=== PATIENT | female | born 1975 | race Caucasian/White ===

== ENCOUNTER 2019-08-17 12:46 | Emergency (ER) | payer OTHER ==
[~2019-08-17] VITALS: Ht 160 cm; Wt 76.8 kg
[2019-08-17 13:49] LABS: BACTERIA,URINE MANY /HPF (0-FEW); BILIRUBIN,URINE NEG (NEG); CLARITY,URINE TURBID; COLOR,URINE AMBER; GLUCOSE,URINE NEG (NEG); NITRITE,URINE NEG (NEG); UROBILINOGEN,URINE 0.2 mg/dL (0.2 mg/dL); WBC,URINE >40 /HPF (0-4)
[2019-08-17 13:51] LABS: SQUAMOUS EPITHELIAL CELL,UR MOD /LPF
--- NOTE | 2019-08-17 13:58 | PHYS DOC ---
Past History Additional Past Medical Histor: Colitis Past Surgical History: No Surgical History Smoking: Non-smoker Alcohol Use: Rarely Drug Use: None Adult General Chief Complaint Chief Complaint: ABDOMINAL PAIN HPI HPI Patient is a 44-year-old female who presents to the ED with abdominal pain. She states that the pain is generalized worse in the lower abdomen and also bilateral flank pain L>R. she stated that she is dealing with bouts of colitis since her child was born approximately 2 years prior. This most recent episode has been going on for approximately 4 weeks but the pain has become more constant over the past 3 days. She was seen at [facility] on 08/05/2019 for similar symptoms. She was given a course of ciprofloxacin for possible cystitis as well as colitis. Her symptoms continue to worsen in her abdominal pain became more constant and less responsive to tramadol. She describes the pain as a crampy pain that is similar to menstrual cramps. She feels it more in her lower abdomen. It wax and wanes but has become more constant. She denies fevers and chills for the past week but states that she does have a change in bowel movements going from a more formed stool to liquid as well as nausea. She states that she does have occasional blood in her stools but that seems to come and go. She states that having a bowel movement does relieve the pain for a short period. She has been unable to eat normally for approximately 4 weeks due to her symptoms. Denies travel outside the [place]. Denies known sick contacts. Review of Systems Review of Systems Constitutional: Denies fever or chills Respiratory: Denies cough, reports shortness of breath secondary to pain Cardiovascular: Denies chest pain or palpitations GI: Reports abdominal pain and nausea, denies vomiting : Denies dysuria or hematuria Musculoskeletal: Reports bilateral flank pain L>R, denies joint pain Complete systems were reviewed and found to be within normal limits, except as documented in this note. Current Medications Current Medications Current Medications Medications (Trade) Dose Ordered Sig/Kalpana Start Time Stop Time Status Last Admin Dose Admin Famotidine (Pepcid Vial) 20 mg 1X ONCE 08/17/19 13:30 08/17/19 13:31 Fentanyl Citrate (Fentanyl 2ml Vial) 50 mcg 1X ONCE 08/17/19 13:15 08/17/19 13:22 DC Ondansetron HCl (Zofran) 4 mg 1X ONCE 08/17/19 13:30 08/17/19 13:31 Sodium Chloride 1,000 ml @ 1,000 mls/hr 1X ONCE 08/17/19 13:15 08/17/19 14:14 Allergies Allergies Allergies Coded Allergies Type Severity Reaction Last Updated Verified Sulfa (Sulfonamide Antibiotics) Allergy Unknown 08/17/19 Yes Physical Exam Physical Exam Constitutional: Well developed, well nourished, mild distress, uncomfortable appearance HENT: Normocephalic, atraumatic, oropharynx moist Eyes: PERRL, EOMI, conjunctiva normal, no discharge Neck: Normal range of motion, no tenderness, supple Cardiovascular: Heart rate rapid, regular rhythm Lungs & Thorax: Bilateral breath sounds clear to auscultation, no wheezing Abdomen: Soft, tenderness to palpation in lower abdomen generalized, reports guarding Skin: Warm, dry, no erythema, no rash Back: No tenderness, bilateral CVA tenderness L>R Extremities: No tenderness, ROM intact, no edema Neurologic: Alert and oriented X 3, normal motor function, normal sensory function, no focal deficits noted Psychologic: Affect normal, judgment normal Current Patient Data Lab Results Laboratory Tests Test 08/17/19 13:27 POC Urine HCG, Qualitative hcg negative (Negative) EKG EKG [] Radiology/Procedures Radiology/Procedures PROCEDURE: CT ABD PELV W/ORAL&IV CONTRAST CT abdomen and pelvis with contrast 08/17/2019. Reason for exam: Nausea and vomiting with pain. CT images were performed through the abdomen and pelvis following oral contrast ingestion and using an infusion of 75 mL Omnipaque 300. Exposure: One or more of the following individualized dose reduction techniques were utilized for this examination: 1. Automated exposure control 2. Adjustment of the mA and/or kV according to patient size 3. Use of iterative reconstruction technique. FINDINGS: The lung bases are clear. The liver contains some tiny low-attenuation structures probably indicating cysts. No other liver parenchymal abnormality is seen. There is probably a small stone in the gallbladder. Gallbladder otherwise appears normal. The spleen appears normal. Both kidneys enhance with contrast. No mass or obstruction is seen. There are tiny calculi. The adrenal glands are not enlarged. The pancreas appears normal. No retroperitoneal adenopathy is seen. There are a few small lymph nodes scattered in the small bowel mesentery, although these are less than 1 cm. No abdominal soft tissue mass is seen. There is diffuse colon wall thickening beginning in the proximal transverse colon and extending through the descending colon and sigmoid colon. This consistent with diffuse colitis. There is some edema in the adjacent mesenteric fat. No localized fluid collection such as an abscess is seen. Images through the pelvis show no abnormality of the distal ureters or bladder. No inguinal adenopathy is seen. There is a mildly prominent lymph node along the left pelvic sidewall. The uterus and adnexal structures appear normal for age. There is no separate pelvic mass or additional inflammatory process. IMPRESSION: Findings suggest diffuse colitis Electronically signed by: Zachariah Gallego Jr., MD (08/17/2019 4:44 PM) [facility] [place] Course & Med Decision Making Course & Med Decision Making Pertinent Labs and Imaging studies reviewed. (See chart for details) Patient is a 42-year-old female who presents to the ED with abdominal pain worsening over the past 3 days. She has history of episodes of colitis since her child was born approximately 2 years prior. This recent episode has been ongoing for 4 weeks but the pain has become more constant over the last 3 days. She was recently seen at [facility] on 08/05/2019 for similar symptoms and given Cipro for possible cystitis and colitis. Her pain has continued and has become more constant and less responsive to tramadol. She describes the pain as a crampy lower abdominal pain. She's also reports bilateral flank pain L>R. patient reports nausea, and change in bowel movement with this recent episode. She denies vomiting,recent fevers, or chills. Her last subjective fever was approximately 1 week prior. She has had a very limited appetite secondary to symptoms for the past 4 weeks. Patient was examined in the ED, she received IV fluids, Zofran for her nausea, Pepcid, fentanyl for pain, and a dose of Bentyl. UA showed signs concerning for acute UTI. Her CBC showed leukocytosis and neutrophilia. She had a lactic acid 3.3 which improved after receiving IV fluids. She was hypokalemic and hypomagnesemia on her CMP. A CT of her abdomen was ordered and showed diffuse colitis. Patient meeting SIRS criteria with source of infection and elevated lactic acid= Severe Sepsis. IV antibiotics were given which included Zosyn, vancomycin, and Levaquin. Her magnesium was replaced. She was given morphine for continued pain. Patient requiring admission for further evaluation and treatment. Given chronic colitis will likely need GI consultation. Patient was to follow with - (GI) but has yet to see this physician. Due to patient requiring transfer to facility with GI coverage, patient and family requesting transfer to . Utilized transfer line. Dr. Belkis Khoury accepting of transfer. Discussed findings and plan with patient and family, who acknowledge unde rstanding and agreement. Dragon Disclaimer Dragon Disclaimer This electronic medical record was generated, in whole or in part, using a voice recognition dictation system. Departure Departure: Impression: Primary Impression: Severe sepsis Additional Impressions: Colitis Acute UTI Hypokalemia Hypomagnesemia Disposition: 05 TRANSFER OTHER () Condition: GUARDED Referrals: KELLI DOE (PCP) Sepsis Assessment Date and Time of Assessment Date: Aug 17, 2019 Time: 16:10 Fluid Challenge: Is the fluid challenge complet: Yes IBW Target Volume Used: Yes BMI > 30: Yes Vital Signs Vital Signs Vital Signs Date Time Temp Pulse Resp B/P (MAP) Pulse Ox O2 Delivery O2 Flow Rate FiO2 08/17/19 19:25 144 20 102/65 (77) 97 Room Air 08/17/19 12:55 97.8 Temperature Source: Oral Respirations Respiratory Effort: Normal, Non-Labored Respiratory Pattern: Normal Cardiovascular Pulse Rhythm: Irregular (Tachycardia) Heart: No rubs, clicks or gallop Lung Sounds Breath Sounds: Clear Capillary Refill Capillary Refill: Rt Hand < 3 seconds Peripheral Pulse Pulse Location: Radial Pulse Strength: Normal (2+) Pulse Assessment Method: Palpation Integumentary Skin: Warm, Dry, No Rashes Skin Moisture: Dry Skin Turgor: Normal Skin Color: warm, dry Fingernail Color: WNL Critical Care Time Critical care time was 30 minutes which includes time at bedside, spent in discussion of patient's care with specialists and/or family members, with interpretation of laboratory and/or radiological studies and is exclusive of procedures. Problem Qualifiers TOMER ROWLEY DO Aug 17, 2019 13:58
[2019-08-17] MEDS ORDERED: CONTRAST GIVEN MC PRN (14:00)
[2019-08-17 14:18] LABS: CALCIUM 9.6 mg/dL (8.5-10.1); GFR 60.8; POTASSIUM 3.2 mmol/L (3.5-5.1)
[2019-08-17 14:23] LABS: ALBUMIN 2.6 g/dL (3.4-5.0); ALBUMIN/GLOBULIN RATIO 0.5 (1.0-1.7); MAGNESIUM 1.7 mg/dL (1.8-2.4); TOTAL BILIRUBIN 0.4 mg/dL (0.2-1.0); TOTAL PROTEIN 7.5 g/dL (6.4-8.2)
[2019-08-17 14:24] LABS: BASO % 0 % (0-3); EOS % 0 % (0-3); HEMATOCRIT 39.5 % (36.0-47.0); HEMOGLOBIN 12.3 g/dL (12.0-15.5); LYMPH # 3.5 x10^3/uL (1.0-4.8); LYMPH % 22 % (24-48); MEAN CORPUSCULAR HEMOGLOBIN 26 pg (25-35); MEAN CORPUSCULAR HGB CONC 31 g/dL (31-37); MEAN CORPUSCULAR VOLUME 85 fL (79-100); MONO # 1.6 x10^3/uL (0.0-1.1); MONO % 10 % (0-9); NEUT # 10.8 x10^3uL (1.8-7.7); NEUT % 68 % (31-73); PLATELET COUNT 619 x10^3/uL (140-400); RED BLOOD COUNT 4.67 x10^6/uL (3.50-5.40); RED CELL DISTRIBUTION WIDTH 18.1 % (11.5-14.5); WHITE BLOOD COUNT 15.9 x10^3/uL (4.0-11.0)
[2019-08-17] MEDS: IV NORMAL SALINE 1,000ML 1,000 ML IV ONE ×3 (14:36→19:45)
[2019-08-17] MEDS: ONDANSETRON PF 4 MG/2 ML VIAL. IVP ONE ×2 (14:39→18:16)
[2019-08-17] MEDS: FAMOTIDINE 20 MG/2 ML VIAL IVP ONE (14:40)
[2019-08-17] MEDS: DICYCLOMINE 20 MG/2 ML AMPUL. IM ONE (14:44)
[2019-08-17] MEDS ORDERED: PIPERACILLIN/TAZOBACTAM 4.5 GM VIAL IV ONE (15:06)
[2019-08-17] MEDS ORDERED: IV NORMAL SALINE 100ML 100 ML ONE (15:06)
[2019-08-17 15:13] LABS: % BANDS 1 % (0-9); % EOS 1 % (0-5); % MONOS 9 % (0-10)
[2019-08-17 15:14] LABS: % LYMPHS 18 % (24-48); % SEGS 71 % (35-66)
[2019-08-17] MEDS: PIPERACILLIN/TAZOBACTAM 4.5 GM in IV NORMAL SALINE 100ML 100 ML IV ONE (15:14)
[2019-08-17 15:16] LABS: PLT ESTIMATE INCREASED (ADEQUATE)
[2019-08-17 15:17] LABS: ANISOCYTOSIS SLIGHT; OVALOCYTES OCC
[2019-08-17] MEDS: MAGNESIUM SULFATE 2GM 50 ML IV ONE (15:24)
[2019-08-17] MEDS: MORPHINE SULFATE 4 MG/ML DISP.SYRIN. IV ONE (15:49)
[2019-08-17] MEDS: IOHEXOL 300 MG/ML 75 ML VIAL. IV ONE (16:20)
[2019-08-17] MEDS: IOHEXOL 240 MG/ML 50ML VIAL. PO ONE (16:21)
--- NOTE | 2019-08-17 16:47 | RAD ---
CT abdomen and pelvis with contrast 08/17/2019. Reason for exam: Nausea and vomiting with pain. CT images were performed through the abdomen and pelvis following oral contrast ingestion and using an infusion of 75 mL Omnipaque 300. Exposure: One or more of the following individualized dose reduction techniques were utilized for this examination: 1. Automated exposure control 2. Adjustment of the mA and/or kV according to patient size 3. Use of iterative reconstruction technique. FINDINGS: The lung bases are clear. The liver contains some tiny low-attenuation structures probably indicating cysts. No other liver parenchymal abnormality is seen. There is probably a small stone in the gallbladder. Gallbladder otherwise appears normal. The spleen appears normal. Both kidneys enhance with contrast. No mass or obstruction is seen. There are tiny calculi. The adrenal glands are not enlarged. The pancreas appears normal. No retroperitoneal adenopathy is seen. There are a few small lymph nodes scattered in the small bowel mesentery, although these are less than 1 cm. No abdominal soft tissue mass is seen. There is diffuse colon wall thickening beginning in the proximal transverse colon and extending through the descending colon and sigmoid colon. This consistent with diffuse colitis. There is some edema in the adjacent mesenteric fat. No localized fluid collection such as an abscess is seen. Images through the pelvis show no abnormality of the distal ureters or bladder. No inguinal adenopathy is seen. There is a mildly prominent lymph node along the left pelvic sidewall. The uterus and adnexal structures appear normal for age. There is no separate pelvic mass or additional inflammatory process. IMPRESSION: Findings suggest diffuse colitis Electronically signed by: Zachariah Gallego Jr., MD (08/17/2019 4:44 PM) [facility] [place] [facility] [place]
[2019-08-17] MEDS: VANCOMYCIN 2 GM in IV NORMAL SALINE 500ML 500 ML IV ONE (18:05)
[2019-08-17 19:25] VITALS: BP 102/65
== END 2019-08-17 20:18 | disposition short-term general hospital (02) ==
LOC: ER 12:46
DX: A41.9 Sepsis, unspecified organism (principal); K52.9 Noninfective gastroenteritis and colitis, unspecified; N39.0 Urinary tract infection, site not specified; E87.6 Hypokalemia; E83.42 Hypomagnesemia; Z88.2 Allergy status to sulfonamides
CPT/HCPCS: 36415; 74177; 80053; 81001; 81025; 83605; 83690; 83735; 85007; 85025; 85610; 85730; 87045; 87086; 87177; 87493; 96361; 96365; 96366; 96367; 96372; 96375; 96376; 99291; J0500; J1956; J2270; J2405; J2543; J3010; J3370; J3475; J3490; J7040; Q9966; Q9967; J7030

== ENCOUNTER 2021-08-09 17:43 | Emergency (ER) | payer OTHER ==
[~2021-08-09] VITALS: Ht 160 cm; Wt 76.8 kg
--- NOTE | 2021-08-09 17:58 | PHYS DOC ---
Past History Past Medical History: Hypertension, Other Additional Past Medical Histor: Colitis Past Surgical History: No Surgical History Smoking: Non-smoker Alcohol Use: Rarely Drug Use: None General Adult HPI: HPI: ".. 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 I think .. I got myself too dry... got a touch flu or something.. I already had COVID in June... " Patient is a 45 year old female who presents with above hx and complaints nausea, vomiting , abdomen pain. Patient did not get COVID vaccination or flu vaccination. Had COVID illness in June of this year. Hx. prior medical issues sepsis.Pt. follows with [facility] for care. Patient has noted she has had very little urine output today. With activity she is very dizzy and weak. No history of recent travel. No history of contacts. No history of bad food. No history of immunosuppression. Pt. follows with [facility] for care. Review of Systems: Review of Systems: Constitutional: Denies fever or chills Eyes: Denies change in visual acuity HENT: Denies nasal congestion or sore throat Respiratory: Denies cough or shortness of breath Cardiovascular: Denies chest pain or edema GI: Complains of abdominal pain, nausea, vomiting,. Denies bloody stools or diarrhea : Denies dysuria Musculoskeletal: Complains of myalgias, arthralgia and malaise Integument: Denies rash Neurologic: Complains of dizziness when she stands up or becomes active Endocrine: Denies polyuria or polydipsia Lymphatic: Denies swollen glands Psychiatric: Denies depression or anxiety Family History: Family History: Noncontributory to presentation Current Medications: Current Meds: See nursing for home meds Allergies: Allergies: Allergies Coded Allergies Type Severity Reaction Last Updated Verified Sulfa (Sulfonamide Antibiotics) Allergy Unknown 08/17/19 Yes Physical Exam: PE: Constitutional: Moderate acute distress, non-toxic appearance. [] HENT: Normocephalic, atraumatic, bilateral external ears normal, oropharynx dry, no oral exudates, nose normal. [] Eyes: PERRLA, EOMI, conjunctiva normal, no discharge. [] Neck: Normal range of motion, no tenderness, supple, no stridor. [] Cardiovascular: Tachycardia heart rate regular rhythm, no murmur [] Lungs & Thorax: Bilateral breath sounds equal at apex auscultation [] Abdomen: Bowel sounds hyperactive ,soft, generalized tenderness, no masses, no pulsatile masses. [] Skin: Warm, dry, no erythema, no rash. [] Back: No tenderness, no CVA tenderness. [] Extremities: No tenderness, no cyanosis, no clubbing, ROM intact, no edema. [] Neurologic: Alert and oriented X 3, normal motor function, normal sensory function, no focal deficits noted. [] Psychologic: Affect anxious judgement normal, mood normal. [] EKG: EKG: My interpretation EKG shows a sinus tachycardia at 170s per minute. No acute morphology. Time EKG is 1901 hrs. [] Radiology/Procedures: Radiology/Procedures: [][place] [address] IMAGING REPORT Signed PATIENT: JOCELYN MCCLENDON YACCOUNT: [id number] : 1975 LOCATION: ER AGE: 45 SEX: F EXAM STATUS: REG ER ORD. PHYSICIAN: KINGA NAVARRETE MD REASON: Nausea, vomiting PROCEDURE: ACUTE ABDOMEN SERIES Exam: Acute abdominal series INDICATION: Nausea vomiting TECHNIQUE: Frontal view of the chest with upright and supine views of the abdomen Comparisons: CT 08/17/2019 FINDINGS: The cardiomediastinal silhouette and pulmonary vessels are within normal limits. The lung and pleural spaces are clear. Air and stool are noted throughout the colon in a nonobstructive bowel gas pattern. No suspicious masses or calcifications. Suture material noted at the pelvis. Visualized osseous structures are unremarkable. IMPRESSION: 1. Nonobstructive bowel gas pattern. 2. No acute cardiopulmonary process. Electronically signed by: Adelfo Casas MD (08/09/2021 11:06 PM) [facility] DICTATED AND SIGNED BY: ADELFO CASAS MD DATE: 08/09/21 1983 CC: KINGA NAVARRETE MD; [facility] DOE ~MTH0 0 Heart Score: C/O Chest Pain: N/A HEART Score for Chest Pain: HEART Score for Chest Pain Response (Comments) Value History Slighlty/Non-Suspicious 0 ECG Nonspecific Repolarizatio 1 Age >45 - < 65 1 Risk Factors No Risk Factors 0 Troponin < Normal Limit 0 Total 2 Risk Factors: Risk Factors: DM, Current or recent (<one month) smoker, HTN, HLP, family history of CAD, obesity. Risk Scores: Score 0 - 3: 2.5% MACE over next 6 weeks - Discharge Home Score 4 - 6: 20.3% MACE over next 6 weeks - Admit for Clinical Observation Score 7 - 10: 72.7% MACE over next 6 weeks - Early Invasive Strategies Course & Med Decision Making: Course & Med Decision Making Pertinent Labs and Imaging studies reviewed. (See chart for details) "I feel so much better after the IV fluids.. " " Still have not been able to urinate yet..." " I don't need the CT.. if I feeling this much better.." Impression: 1. Acute gastroenteritis 2. Abdomen pain 3. Dehydration 4. Hyponatremia 131 5. Hypokalemia 3.3 6. Elevated creatinine BUN 26/1.3 7. Elevated glucose 128 8. History of Covid infection in June 2021 Note there may be information loss on this report. See Downtime ticket [id number]. Dragon Disclaimer: Dragon Disclaimer: This electronic medical record was generated, in whole or in part, using a voice recognition dictation system. Departure Departure: Referrals: KELLI DOE (PCP) Scripts Ondansetron Hcl (ONDANSETRON HCL) 8 Mg Tablet 8 MG PO QIDPRN PRN for NAUSEA/VOMITING, #30 TAB Prov: KINGA NAVARRETE MD 08/10/21 Mick Disclaimer This chart was dictated in whole or in part using Voice Recognition software in a busy, high-work load, and often noisy Emergency Department environment. It may contain unintended and wholly unrecognized errors or omissions. Dragon Disclaimer This chart was dictated in whole or in part using Voice Recognition software in a busy, high-work load, and often noisy Emergency Department environment. It may contain unintended and wholly unrecognized errors or omissions. KINGA NAVARRETE MD Aug 09, 2021 17:58
[2021-08-09 18:31] VITALS: BP 105/61
[2021-08-09] MEDS ORDERED: ONDANSETRON PF 4 MG/2 ML VIAL. IVP ONE (19:00)
[2021-08-09] MEDS ORDERED: FAMOTIDINE 20 MG/2 ML VIAL IVP ONE (19:00)
[2021-08-09] MEDS ORDERED: KETOROLAC 30 MG/ML VIAL. IVP ONE (19:00)
[2021-08-09] MEDS ORDERED: IV RINGERS SOLUTION,LACTATED 1,000 ML IV SCH (19:00)
[2021-08-09 19:30] LABS: BASO % 0 % (0-3); EOS # 0.1 x10^3/uL (0.0-0.7); EOS % 1 % (0-3); HEMATOCRIT 44.9 % (36.0-47.0); HEMOGLOBIN 14.8 g/dL (12.0-15.5); LYMPH # 1.6 x10^3/uL (1.0-4.8); LYMPH % 27 % (24-48); MEAN CORPUSCULAR HEMOGLOBIN 29 pg (25-35); MEAN CORPUSCULAR HGB CONC 33 g/dL (31-37); MEAN CORPUSCULAR VOLUME 88 fL (79-100); MONO # 0.8 x10^3/uL (0.0-1.1); MONO % 14 % (0-9); NEUT # 3.5 x10^3uL (1.8-7.7); NEUT % 58 % (31-73); PLATELET COUNT 302 x10^3/uL (140-400); RED CELL DISTRIBUTION WIDTH 14.1 % (11.5-14.5); WHITE BLOOD COUNT 6.1 x10^3/uL (4.0-11.0)
[2021-08-09 20:48] LABS: CALCIUM 9.3 mg/dL (8.5-10.1); CREATININE 1.3 mg/dL (0.6-1.0); GFR 44.7
[2021-08-09 20:54] LABS: ALBUMIN 3.6 g/dL (3.4-5.0); DIRECT BILIRUBIN 0.1 mg/dL (0.0-0.2); TOTAL BILIRUBIN 0.3 mg/dL (0.2-1.0); TOTAL PROTEIN 7.8 g/dL (6.4-8.2)
[2021-08-09 20:57] LABS: POTASSIUM 3.3 mmol/L (3.5-5.1)
[2021-08-09 22:00] LABS: BARBITURATES NEG (NEG); BENZODIAZEPINES NEG (NEG); CANNABINOIDS NEG (NEG); COCAINE NEG (NEG); METHADONE NEG (NEG); OPIATES NEG (NEG); PHENCYCLIDINE NEG (NEG)
[2021-08-09] MEDS ORDERED: IV RINGERS SOLUTION,LACTATED 1,000 ML IV ONE (22:00)
[2021-08-09 22:01] LABS: CLARITY,URINE HAZY; COLOR,URINE YELLOW; GLUCOSE,URINE NEG (NEG); NITRITE,URINE NEG (NEG); UROBILINOGEN,URINE 0.2 mg/dL (0.2 mg/dL)
[2021-08-09 22:02] LABS: AMPHETAMINE/METHAMPHETAMINE NEG (NEG); BACTERIA,URINE FEW /HPF (0-FEW); SQUAMOUS EPITHELIAL CELL,UR FEW /LPF
--- NOTE | 2021-08-09 23:09 | RAD ---
Exam: Acute abdominal series INDICATION: Nausea vomiting TECHNIQUE: Frontal view of the chest with upright and supine views of the abdomen Comparisons: CT 08/17/2019 FINDINGS: The cardiomediastinal silhouette and pulmonary vessels are within normal limits. The lung and pleural spaces are clear. Air and stool are noted throughout the colon in a nonobstructive bowel gas pattern. No suspicious masses or calcifications. Suture material noted at the pelvis. Visualized osseous structures are unremarkable. IMPRESSION: 1. Nonobstructive bowel gas pattern. 2. No acute cardiopulmonary process. Electronically signed by: Adelfo eBrnard MD (08/09/2021 11:06 PM) [facility]E
[2021-08-09 23:35] LABS: INFLUENZA A PATIENT NEGATIVE (NEGATIVE); INFLUENZA B PATIENT NEGATIVE (NEGATIVE)
[2021-08-10] MEDS ORDERED: ONDA-85 PO (01:31)
--- NOTE | 2021-08-10 06:36 | EKG ---
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
== END 2021-08-10 01:55 | disposition home or self-care (01) ==
LOC: ER 17:43
DX: K52.9 Noninfective gastroenteritis and colitis, unspecified (principal); E86.0 Dehydration; E87.1 Hypo-osmolality and hyponatremia; E87.6 Hypokalemia; R79.89 Other specified abnormal findings of blood chemistry; R73.9 Hyperglycemia, unspecified; I10 Essential (primary) hypertension; Z20.822 Contact with and (suspected) exposure to COVID-19; Z86.16 Personal history of COVID-19; Z88.2 Allergy status to sulfonamides
CPT/HCPCS: 36415; 74022; 80048; 80076; 80307; 81001; 81025; 82550; 83690; 84484; 85025; 85610; 85730; 87086; 87428; 93005; 96361; 96374; 96375; 99284; J1885; J2405; J3490; J7120; 99285

== ENCOUNTER 2021-09-29 20:11 | Emergency (ER) | payer OTHER ==
[~2021-09-29] VITALS: Ht 160 cm; Wt 76.8 kg
[~2021-09-29 20:11] MED LIST: ONDA-85 PO
--- NOTE | 2021-09-29 20:24 | PHYS DOC ---
Past History Past Medical History: Hypertension, Other Additional Past Medical Histor: Ulcerative colitis Past Surgical History: Colectomy Smoking: Non-smoker Alcohol Use: None Drug Use: None General Adult EDM: Chief Complaint: NAUSEA/VOMITING/DIARRHEA HPI: HPI: ".. I ve got a lot of nausea... vomiting.. ... ".. " Hurting all over my abdomen.. ".. " I developed ulcerative colitis ,,, with my last ... And it never responded to any drug therapies... And I eventually had to have my colon removed approximately a year ago. Since that time... had problems with dehydration.... I did eat some pizza that was leftover the other night... when the nausea vomiting and diarrhea..started.. I always have some. Diarrhea .. it just more than usual..now..." Patient is a 46 year old female who presents with above hx and complaints nausea, vomiting, diarrhea and abdomen pain. Patient has history of development of ulcerative colitis requiring eventual colon ectomy approximately year ago. Patient does have history of some questionable pizza intake the 2 days ago.. Patient follows with [facility] for care, and [facility] for surgery and GI. Has seen Dr. Renteria for GI. No recent travel. No specific ill contacts. Has completed COVID vaccination and booster. Patient did not get flu vaccination. No history of recent antibiotic use. Review of Systems: Review of Systems: Constitutional: Some complaints of fever or chills Eyes: Denies change in visual acuity HENT: Denies nasal congestion or sore throat Respiratory: Denies cough or shortness of breath Cardiovascular: Denies chest pain or edema GI: Complains of generalized abdominal pain, nausea, vomiting, diarrhea : Denies dysuria Musculoskeletal: Denies back pain or joint pain Integument: Denies rash Neurologic: Denies headache, focal weakness or sensory changes Endocrine: Denies polyuria or polydipsia Lymphatic: Denies swollen glands Psychiatric: Denies depression or anxiety Family History: Family History: Noncontributory to presentation Current Medications: Current Meds: See nursing for home meds Allergies: Allergies: Allergies Coded Allergies Type Severity Reaction Last Updated Verified Sulfa (Sulfonamide Antibiotics) Allergy Unknown 08/17/19 Yes Physical Exam: PE: Constitutional: in acute distress, non-toxic appearance. [] HENT: Normocephalic, atraumatic, bilateral external ears normal, oropharynx moist, no oral exudates, nose normal. [] Eyes: PERRLA, EOMI, conjunctiva normal, no discharge. [] Neck: Normal range of motion, no tenderness, supple, no stridor. [] Cardiovascular: Tachycardia heart rate regular rhythm, no murmur [] Lungs & Thorax: Bilateral breath sounds equal apex on auscultation [] Abdomen: Bowel sounds hyperactive, soft, generalized tenderness, no masses, no pulsatile masses. Old surgery scars. Skin: Warm, dry, no erythema, no rash. [] Back: No tenderness, no CVA tenderness. [] Extremities: No tenderness, no cyanosis, no clubbing, ROM intact, no edema. [No true psoas sign. Neurologic: Alert and oriented X 3, moves extremities on request, has distal sensory, no focal deficits noted. [] Psychologic: Affect anxious, judgement normal, mood normal. [] EKG: EKG: My interpretation EKG shows a sinus tachycardia 108 bpm. No findings acute STEMI of contralateral changes. Time of this EKG is 2135 hrs. [] Radiology/Procedures: Radiology/Procedures: [][place] [address] IMAGING REPORT Signed PATIENT: JOCELYN MCCLENDONOUNT: [id number] : 1975 LOCATION: ER AGE: 46 SEX: F EXAM STATUS: REG ER ORD. PHYSICIAN: KINGA NAVARRETE MD REASON: pain, hx colon resection, J-POUCH PROCEDURE: ACUTE ABDOMEN SERIES Exam: Acute abdominal series INDICATION: Pain, colonic resection TECHNIQUE: Frontal view of the chest with upright and supine views the abdomen Comparisons: 08/09/2021 FINDINGS: The cardiomediastinal silhouette and pulmonary vessels are within normal limits. The lung and pleural spaces are clear. Air and stool are noted throughout the colon to level the rectum in a nonobstructive bowel gas pattern. No suspicious masses or calcifications. Visualized osseous structures are unremarkable. IMPRESSION: 1. No acute cardiopulmonary process. 2. Nonobstructive bowel gas pattern. Electronically signed by: Adelfo Casas MD (09/29/2021 10:41 PM) [facility]ENTER[facility] DICTATED AND SIGNED BY: ADELFO CASAS MD DATE: 09/29/212238 CC: KINGA NAVARRETE MD; KELLI DOE ~ Heart Score: C/O Chest Pain: N/A HEART Score for Chest Pain: HEART Score for Chest Pain Response (Comments) Value History Slighlty/Non-Suspicious 0 ECG Normal 0 Age < 45 0 Risk Factors 1 or 2 Risk Factors 1 Troponin < Normal Limit 0 Total 1 Risk Factors: Risk Factors: DM, Current or recent (<one month) smoker, HTN, HLP, family history of CAD, obesity. Risk Scores: Score 0 - 3: 2.5% MACE over next 6 weeks - Discharge Home Score 4 - 6: 20.3% MACE over next 6 weeks - Admit for Clinical Observation Score 7 - 10: 72.7% MACE over next 6 weeks - Early Invasive Strategies Course & Med Decision Making: Course & Med Decision Making Pertinent Labs and Imaging studies reviewed. (See chart for details) Patient is clear fluids for the next 2 days. No solids. No milk products. Must allow complete bowel rest. Take Zofran 8 mg at 4 times a day for active nausea and vomiting. Follow-up primary care. Take Cipro 500 mg twice daily for 5 days. Follow-up urine culture. Tylenol and ibuprofen for pain. Return if any concerns. Impression: 1. Acute gastroenteritis- suspect viral 2. History of ulcerative colitis status post colectomy 3. Urinary tract infection 4. Dehydration [] Dragon Disclaimer: Dragon Disclaimer: This electronic medical record was generated, in whole or in part, using a voice recognition dictation system. Departure Departure: Referrals: KELLI DOE (PCP) Scripts Ondansetron Hcl (ONDANSETRON HCL) 4 Mg Tablet 8 MG PO QIDPRN for nv, #30 TAB Prov: KINGA NAVARRETE MD 09/30/21 Ciprofloxacin Hcl (CIPRO) 500 Mg Tablet 500 MG PO BID for uti for 5 Days, #10 TAB Prov: KINGA NAVARRETE MD 09/30/21 Dragon Disclaimer This chart was dictated in whole or in part using Voice Recognition software in a busy, high-work load, and often noisy Emergency Department environment. It may contain unintended and wholly unrecognized errors or omissions. Dragon Disclaimer This chart was dictated in whole or in part using Voice Recognition software in a busy, high-work load, and often noisy Emergency Department environment. It may contain unintended and wholly unrecognized errors or omissions. KINGA NAVARRETE MD Sep 29, 2021 20:24
[2021-09-29] MEDS: FAMOTIDINE 20 MG/2 ML VIAL IVP ONE (20:57)
[2021-09-29] MEDS: ONDANSETRON PF 4 MG/2 ML VIAL. IVP ONE (20:57)
[2021-09-29] MEDS: IV RINGERS SOLUTION,LACTATED 1,000 ML IV SCH (20:57)
[2021-09-29 21:17] LABS: BASO % 1 % (0-3); EOS # 0.2 x10^3/uL (0.0-0.7); EOS % 2 % (0-3); HEMATOCRIT 42.4 % (36.0-47.0); HEMOGLOBIN 13.9 g/dL (12.0-15.5); LYMPH # 1.6 x10^3/uL (1.0-4.8); LYMPH % 17 % (24-48); MEAN CORPUSCULAR HEMOGLOBIN 29 pg (25-35); MEAN CORPUSCULAR HGB CONC 33 g/dL (31-37); MEAN CORPUSCULAR VOLUME 89 fL (79-100); MONO # 0.4 x10^3/uL (0.0-1.1); MONO % 4 % (0-9); NEUT % 76 % (31-73); PLATELET COUNT 333 x10^3/uL (140-400); RED BLOOD COUNT 4.77 x10^6/uL (3.50-5.40); WHITE BLOOD COUNT 9.2 x10^3/uL (4.0-11.0)
[2021-09-29 21:29] LABS: ANION GAP 14 (6-14); BLOOD UREA NITROGEN 14 mg/dL (7-20); CALCIUM 9.2 mg/dL (8.5-10.1); CARBON DIOXIDE 25 mmol/L (21-32); CHLORIDE 101 mmol/L (98-107); CREATININE 0.7 mg/dL (0.6-1.0); GFR 90.9; GLUCOSE 86 mg/dL (70-99); SODIUM 140 mmol/L (136-145)
[2021-09-29 21:38] LABS: ALBUMIN 3.4 g/dL (3.4-5.0); ALK PHOS 95 U/L (46-116); ALT (SGPT) 15 U/L (14-59); AMYLASE 55 U/L (25-115); AST (SGOT) 25 U/L (15-37); LIPASE 61 U/L (73-393); TOTAL BILIRUBIN 0.5 mg/dL (0.2-1.0); TOTAL PROTEIN 7.4 g/dL (6.4-8.2)
[2021-09-29 21:39] LABS: DIRECT BILIRUBIN < 0.1 mg/dL (0.0-0.2)
[2021-09-29 22:01] LABS: INFLUENZA A PATIENT NEGATIVE (NEGATIVE); INFLUENZA B PATIENT NEGATIVE (NEGATIVE)
[2021-09-29] MEDS: IV RINGERS SOLUTION,LACTATED 1,000 ML IV ONE (22:12)
[2021-09-29] MEDS: oxyCODONE/APAP 5/325 1 TAB TABLET PO ONE (22:35)
--- NOTE | 2021-09-29 22:43 | RAD ---
Exam: Acute abdominal series INDICATION: Pain, colonic resection TECHNIQUE: Frontal view of the chest with upright and supine views the abdomen Comparisons: 08/09/2021 FINDINGS: The cardiomediastinal silhouette and pulmonary vessels are within normal limits. The lung and pleural spaces are clear. Air and stool are noted throughout the colon to level the rectum in a nonobstructive bowel gas patter n. No suspicious masses or calcifications. Visualized osseous structures are unremarkable. IMPRESSION: 1. No acute cardiopulmonary process. 2. Nonobstructive bowel gas pattern. Electronically signed by: Adelfo Bernard MD (09/29/2021 10:41 PM) GABBIE
--- NOTE | 2021-09-29 23:28 | EKG ---
[address] [address] Test Date: 2021-09-29 Test Time: 21:35:37 Pat Name: JOCELYN MCCLENDON Department: Room: Gender: F [employer] Inspector: : 1975 Requested By: KINGA NAVARRETE Order Number: [id number] Reading MD: Marck Nina Measurements Intervals [place] Rate: 108 P: 34 FL: 136 QRS: 55 QRSD: 88 T: 49 QT: 320 QTc: 432 Interpretive Statements SINUS TACHYCARDIA Electronically Signed On 10-01-2021 13:22:11 CDT by Marck Nina
[2021-09-30 00:39] LABS: CLARITY,URINE CLEAR; COLOR,URINE YELLOW; GLUCOSE,URINE NEG (NEG); NITRITE,URINE NEG (NEG); UROBILINOGEN,URINE 0.2 mg/dL (0.2 mg/dL)
[2021-09-30 00:40] LABS: BACTERIA,URINE MOD /HPF (0-FEW); SQUAMOUS EPITHELIAL CELL,UR MOD /LPF
[2021-09-30] MEDS ORDERED: CIPR500T94 PO (00:43)
[2021-09-30] MEDS ORDERED: ONDA-84 PO (00:43)
[2021-09-30] MEDS: CIPROFLOXACIN HCL 500 MG TABLET PO ONE (00:48)
[2021-09-30 00:51] VITALS: BP 124/90
== END 2021-09-30 00:55 | disposition home or self-care (01) ==
LOC: ER 20:11
DX: K52.9 Noninfective gastroenteritis and colitis, unspecified (principal); N39.0 Urinary tract infection, site not specified; E86.0 Dehydration; I10 Essential (primary) hypertension; Z20.822 Contact with and (suspected) exposure to COVID-19; Z90.49 Acquired absence of other specified parts of digestive tract; Z88.2 Allergy status to sulfonamides
CPT/HCPCS: 36415; 74022; 80048; 80076; 81001; 81025; 82150; 82550; 83690; 84484; 85025; 85610; 85730; 87086; 87428; 93005; 96361; 96374; 96375; 99284; J2405; J3490; J7120

== ENCOUNTER 2021-11-10 16:05 | Emergency (ER) | payer OTHER ==
[~2021-11-10] VITALS: Ht 160 cm; Wt 85.8 kg
[~2021-11-10 16:05] MED LIST changes: +CIPR500T94 PO; +ONDA-84 PO
[2021-11-10] MEDS ORDERED: IV NORMAL SALINE 1,000ML 1,000 ML IV SCH (16:45)
[2021-11-10] MEDS ORDERED: ONDANSETRON PF 4 MG/2 ML VIAL. IVP ONE (16:45)
--- NOTE | 2021-11-10 16:46 | PHYS DOC ---
Past History Past Medical History: Hypertension, Other Additional Past Medical Histor: Ulcerative colitis Past Surgical History: Colectomy Additional Past Surgical Histo: colon Smoking: Non-smoker Alcohol Use: Occasionally Drug Use: None General Adult EDM: Chief Complaint: ABDOMINAL PAIN HPI: HPI: Patient is a 46-year-old female who presents to the emergency department today for umbilical abdominal pain that started yesterday. She reports that is intermittent and sharp and rates it 7 out of 10. She is also reporting nausea and vomiting. She took Zofran without any relief in her symptoms. Patient reports she has chronic dehydration and chronic abdominal pain. She has ulcerative colitis and does have a colectomy due to that she does have loose stools which is chronic for her. She denies fevers or urinary symptoms. Review of Systems: Review of Systems: Constitutional: See HPI GI: See HPI : See HPI Allergies: Allergies: Allergies Coded Allergies Type Severity Reaction Last Updated Verified Sulfa (Sulfonamide Antibiotics) Allergy Unknown 11/10/21 Yes Physical Exam: PE: Constitutional: Well developed, well nourished, no acute distress, non-toxic appearance. [] HENT: Normocephalic, atraumatic, bilateral external ears normal, oropharynx moist, no oral exudates, nose normal. [] Eyes: PERRL, EOMI, conjunctiva normal, no discharge. [] Neck: Normal range of motion, no tenderness, supple, no stridor. [] Cardiovascular:Heart rate regular rhythm, no murmur [] Lungs & Thorax: Bilateral breath sounds clear to auscultation [] Abdomen: Bowel sounds normal, soft, no abdominal rigidity or guarding, midline upper abdominal and umbilical pain with palpation, no masses, no pulsatile masses. [] Skin: Warm, dry, no erythema, no rash. [] Back: No tenderness, no CVA tenderness. [] Extremities: No tenderness, no cyanosis, no clubbing, ROM intact, no edema. [] Neurologic: Alert and oriented X 3, normal motor function, normal sensory function, no focal deficits noted. [] Psychologic: Affect normal, judgement normal, mood normal. [] Current Patient Data: Labs: Laboratory Tests Test 11/10/21 17:10 White Blood Count 11.4 x10^3/uL Red Blood Count 4.59 x10^6/uL Hemoglobin 12.9 g/dL Hematocrit 39.2 % Mean Corpuscular Volume 86 fL Mean Corpuscular Hemoglobin 28 pg Mean Corpuscular Hemoglobin Concent 33 g/dL Red Cell Distribution Width 15.1 % Platelet Count 396 x10^3/uL Neutrophils (%) (Auto) 75 % Lymphocytes (%) (Auto) 17 % Monocytes (%) (Auto) 8 % Eosinophils (%) (Auto) 0 % Basophils (%) (Auto) 0 % Neutrophils # (Auto) 8.6 x10^3uL Lymphocytes # (Auto) 1.9 x10^3/uL Monocytes # (Auto) 0.9 x10^3/uL Eosinophils # (Auto) 0.0 x10^3/uL Basophils # (Auto) 0.0 x10^3/uL Sodium Level 139 mmol/L Potassium Level 3.8 mmol/L Chloride Level 103 mmol/L Carbon Dioxide Level 22 mmol/L Anion Gap 14 Blood Urea Nitrogen 10 mg/dL Creatinine 1.1 mg/dL Estimated GFR (Cockcroft-Gault) 54.0 BUN/Creatinine Ratio 9 Glucose Level 107 mg/dL Calcium Level 9.7 mg/dL Total Bilirubin 0.3 mg/dL Aspartate Amino Transf (AST/SGOT) 17 U/L Alanine Aminotransferase (ALT/SGPT) 19 U/L Alkaline Phosphatase 94 U/L Total Protein 7.1 g/dL Albumin 3.5 g/dL Albumin/Globulin Ratio 1.0 Lipase 58 U/L Current Medications Medications (Trade) Dose Ordered Sig/Kalpana Route PRN Reason Start Time Stop Time Status Last Admin Dose Admin Sodium Chloride 1,000 ml @ 1,000 mls/hr Q1H IV 11/10/21 16:45 11/10/21 17:44 DC 11/10/21 17:12 Fentanyl Citrate (Fentanyl 2ml Vial) 50 mcg 1X ONCE IVP 11/10/21 16:45 11/10/21 17:02 DC 11/10/21 17:15 Ondansetron HCl (Zofran) 4 mg 1X ONCE IVP 11/10/21 16:45 11/10/21 17:02 DC 11/10/21 17:13 Fentanyl Citrate (Fentanyl 2ml Vial) 50 mcg 1X ONCE IVP 11/10/21 18:15 11/10/21 18:16 DC 11/10/21 18:13 Pantoprazole Sodium (Protonix Vial) 40 mg 1X ONCE IVP 11/10/21 18:15 11/10/21 18:16 DC 11/10/21 18:37 Vital Signs: Vital Signs Date Time Temp Pulse Resp B/P (MAP) Pulse Ox O2 Delivery O2 Flow Rate FiO2 11/10/21 16:10 98.3 90 18 149/86 (107) 99 Room Air EKG: EKG: [] Radiology/Procedures: Radiology/Procedures: []REASON: upper abdominal pain,per pt had colon removed PROCEDURE: CT ABDOMEN PELVIS WO CONTRAST Exam: CT abdomen/pelvis without intravenous contrast Indication: Right upper quadrant pain, colon removed Comparison: CT abdomen pelvis 08/17/2019 Technique: Helical CT imaging performed of the abdomen and pelvis without the use of intravenous contrast. Sagittal and coronal reformats were obtained. One or more of the following individualized dose reduction techniques were utilized for this examination: 1. Automated exposure control 2. Adjustment of the mA and/or kV according to patient size 3. Use of iterative reconstruction technique. Findings: Inherently limited evaluation without intravenous contrast. Lower chest: The lung bases are clear. The heart is normal in size. Liver: There are unchanged hepatic cysts measuring up to 1 cm. Gallbladder/Biliary Tree: The gallbladder is mildly distended, unchanged. There is cholelithiasis. Bile ducts are normal. Pancreas: Normal. Spleen: Normal. Adrenal Glands: Normal. Kidneys/Ureters/Bladder: Kidneys are normal in size. There is bilateral nephrolithiasis with calculi measuring up to 4 mm bilaterally. No hydronephrosis. Ureters are normal. The bladder is incompletely distended but unremarkable. Reproductive Organs: Uterus is anteverted. Adnexal mass. Stomach, small bowel, and colon: There are new surgical changes of colectomy. The stomach is normal. There multiple dilated loops of small bowel measuring up to 3 cm in diameter. There is fecal material in distal small bowel in the pelvis. There appears to be transition point at the anastomosis in the pelvis on the left (image [id number], series 2). Mild fat stranding along dilated loops of small bowel. No pneumatosis or pneumoperitoneum. No ascites. Vasculature: No aortic aneurysm. Lymph Nodes: There is no lymphadenopathy. Peritoneum and retroperitoneum: No ascites or free air. Bones: No acute osseous abnormality. IMPRESSION: 1. New surgical changes of colectomy. Small bowel obstruction with suspected transition point at an anastomosis in the pelvis on the left. 2. Bilateral nephrolithiasis. No hydronephrosis. 3. Cholelithiasis and mildly distended gallbladder, unchanged. Electronically signed by: Luisa Younger MD (11/10/2021 5:26 PM) [id number] Heart Score: C/O Chest Pain: N/A Risk Factors: Risk Factors: DM, Current or recent (<one month) smoker, HTN, HLP, family history of CAD, obesity. Risk Scores: Score 0 - 3: 2.5% MACE over next 6 weeks - Discharge Home Score 4 - 6: 20.3% MACE over next 6 weeks - Admit for Clinical Observation Score 7 - 10: 72.7% MACE over next 6 weeks - Early Invasive Strategies Course & Med Decision Making: Course & Med Decision Making Pertinent Labs and Imaging studies reviewed. (See chart for details) [] Patient resents to the emergency department for abdominal pain with nausea and vomiting. Patient does have a history of chronic abdominal pain with loose stools due to ulcerative colitis and a colectomy. Patient reports that when she does have these flares she becomes dehydrated and requires IV fluids. Work-up in the ER consisted of blood work including lipase, urinalysis and CT imaging of abdomen and pelvis. Patient treated with IV fluids, nausea and pain medication. Patient's blood work was unremarkable, creatinine 1.1 and remaining CMP is unremarkable, negative lipase, CT scan shows small bowel obstruction. Patient is not having any active vomiting while in the emergency department. I discussed patient's case with Dr. Ortiz with GI who advised placing an NG tube and he will consult on the patient. Patient will require transfer to [facility]. Dr. Carcamo with general surgery consulted. Discussed patient's case with Dr. Whitaker who agreed to admit patient under his services for small bowel obstruction. Discussed findings with the patient and she is agreeable to transfer and admission. Mick Disclaimer: Mick Disclaimer: This electronic medical record was generated, in whole or in part, using a voice recognition dictation system. Departure Departure: Impression: Primary Impression: Small bowel obstruction Disposition: 02 SHORT TERM HOSPITAL Condition: STABLE Referrals: KELLI DOE (PCP) STEPHANIE MCCRACKEN [employer] SUPERVISOR November 10, 2021 16:46
--- NOTE | 2021-11-10 17:29 | RAD ---
Exam: CT abdomen/pelvis without intravenous contrast Indication: Right upper quadrant pain, colon removed Comparison: CT abdomen pelvis 08/17/2019 Technique: Helical CT imaging performed of the abdomen and pelvis without the use of intravenous cont rast. Sagittal and coronal reformats were obtained. One or more of the following individualized dose reduction techniques were utilized for this examinat ion: 1. Automated exposure control 2. Adjustment of the mA and/or kV according to patient size 3. Use of iterative reconstruction technique. Findings: Inherently limited evaluation without intravenous contrast. Lower chest: The lung bases are clear. The heart is normal in size. Liver: There are unchanged hepatic cysts measuring up to 1 cm. Gallbladder/Biliary Tree: The gallbladder is mildly distended, unchanged. There is cholelithiasis. Bi le ducts are normal. Pancreas: Normal. Spleen: Normal. Adrenal Glands: Normal. Kidneys/Ureters/Bladder: Kidneys are normal in size. There is bilateral nephrolithiasis with calculi measuring up to 4 mm bilaterally. No hydronephrosis. Ureters are normal. The bladder is incompletely distended but unremarkable. Reproductive Organs: Uterus is anteverted. Adnexal mass. Stomach, small bowel, and colon: There are new surgical changes of colectomy. The stomach is normal. There multiple dilated loops of small bowel measuring up to 3 cm in diameter. There is fecal material in distal small bowel in the pelvis. There appears to be transition point at the anastomosis in the pelvis on the left (image [id number], series 2). Mild fat stranding along dilated loops of small bowel. No pneumatosis or pneumoperitoneum. No ascites. Vasculature: No aortic aneurysm. Lymph Nodes: There is no lymphadenopathy. Peritoneum and retroperitoneum: No ascites or free air. Bones: No acute osseous abnormality. IMPRESSION: 1. New surgical changes of colectomy. Small bowel obstruction with suspected transition point at an a nastomosis in the pelvis on the left. 2. Bilateral nephrolithiasis. No hydronephrosis. 3. Cholelithiasis and mildly distended gallbladder, unchanged. Electronically signed by: Luisa Younger MD (11/10/2021 5:26 PM) [id number]
[2021-11-10 17:32] LABS: BASO % 0 % (0-3); EOS % 0 % (0-3); HEMATOCRIT 39.2 % (36.0-47.0); HEMOGLOBIN 12.9 g/dL (12.0-15.5); LYMPH # 1.9 x10^3/uL (1.0-4.8); LYMPH % 17 % (24-48); MEAN CORPUSCULAR HEMOGLOBIN 28 pg (25-35); MEAN CORPUSCULAR HGB CONC 33 g/dL (31-37); MEAN CORPUSCULAR VOLUME 86 fL (79-100); MONO # 0.9 x10^3/uL (0.0-1.1); MONO % 8 % (0-9); NEUT # 8.6 x10^3uL (1.8-7.7); NEUT % 75 % (31-73); PLATELET COUNT 396 x10^3/uL (140-400); RED BLOOD COUNT 4.59 x10^6/uL (3.50-5.40); RED CELL DISTRIBUTION WIDTH 15.1 % (11.5-14.5); WHITE BLOOD COUNT 11.4 x10^3/uL (4.0-11.0)
[2021-11-10 17:52] LABS: CALCIUM 9.7 mg/dL (8.5-10.1); CREATININE 1.1 mg/dL (0.6-1.0); POTASSIUM 3.8 mmol/L (3.5-5.1)
[2021-11-10 17:57] LABS: ALBUMIN 3.5 g/dL (3.4-5.0); TOTAL BILIRUBIN 0.3 mg/dL (0.2-1.0); TOTAL PROTEIN 7.1 g/dL (6.4-8.2)
[2021-11-10] MEDS ORDERED: PANTOPRAZOLE IV 40 MG VIAL. IVP ONE (18:15)
[2021-11-10] MEDS ORDERED: MORPHINE SULFATE 2 MG/ML DISP.SYRIN. IV ONE ×2 (19:15→20:15)
[2021-11-10] MEDS ORDERED: PROCHLORPERAZINE 10 MG/2 ML VIAL. IV ONE (20:15)
[2021-11-10] MEDS ORDERED: PROCHLORPERAZINE 10 MG/2 ML VIAL. ONE (20:17)
[2021-11-10 21:21] LABS: CLARITY,URINE CLEAR; COLOR,URINE YELLOW; GLUCOSE,URINE NEG (NEG); NITRITE,URINE NEG (NEG); UROBILINOGEN,URINE 0.2 mg/dL (0.2 mg/dL)
[2021-11-10 21:22] LABS: BACTERIA,URINE FEW /HPF (0-FEW); SQUAMOUS EPITHELIAL CELL,UR FEW /LPF
[2021-11-10 21:35] VITALS: BP 131/71
== END 2021-11-10 21:43 | disposition short-term general hospital (02) ==
LOC: ER 16:05
DX: K56.609 Unspecified intestinal obstruction, unspecified as to partial versus complete obstruction (principal); I10 Essential (primary) hypertension; G89.29 Other chronic pain; Z90.49 Acquired absence of other specified parts of digestive tract; Z88.2 Allergy status to sulfonamides
CPT/HCPCS: 36415; 74176; 80053; 81001; 83690; 85025; 87086; 87147; 96361; 96374; 96375; 96376; 99285; C9113; J0780; J2270; J2405; J3010; J7030